=== PATIENT | male | born 2000 | race Caucasian/White ===

== ENCOUNTER 2019-07-16 23:25 | Emergency (ER) | payer SELFPAY ==
[~2019-07-16] VITALS: Ht 165.1 cm; Wt 69.5 kg
[2019-07-16 23:37] VITALS: BP 120/79
--- NOTE | 2019-07-17 00:35 | NUR ---
PT AMBULATED TO BED 7 WITH PARTNER
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
--- NOTE | 2019-07-17 01:40 | NUR ---
PATIENT ALERT AND ORIENTED, BREATHING EVEN AND UNLABORED. FRIEND AT BEDSIDE
[2019-07-17 01:55] VITALS: BP 120/79
--- NOTE | 2019-07-17 03:30 | NUR ---
PATIENT ALERT AND ORIENTED, BREATHING EVEN AND UNLABORED
--- NOTE | 2019-07-17 04:30 | NUR ---
DISCHARGE DONE BY DR RAMOS. Patient discharged with v/s stable. Written and verbal after care instructions ABOUT LACERATION CARE given and explained. Patient verbalized understanding. Ambulatory with steady gait. All questions addressed prior to discharge. Advised to follow up with PMD.
== END 2019-07-17 01:55 | disposition home or self-care (01) ==
LOC: MED 23:25
DX: S01.111A Laceration without foreign body of right eyelid and periocular area, initial encounter (principal); Z88.0 Allergy status to penicillin; W22.01XA Walked into wall, initial encounter; Y93.89 Activity, other specified; Y92.89 Other specified places as the place of occurrence of the external cause; Y99.8 Other external cause status
CPT/HCPCS: 99281